=== PATIENT | male | born 1985 | race Two or more races ===

== ENCOUNTER → 2024-08-14 | Outpatient (CLI) | payer MEDICAID, SELFPAY ==
--- NOTE | 2024-08-14 09:02 | XR_ITS ---
Examination: Bilateral hips, AP pelvis, 5 views Technique: AP, lateral views both hips, AP pelvis, 5 views Exam date and time: August 14, 2024 0913 hours INDICATIONS: Bilateral hip pain beginning 4 months ago. FINDINGS: Advanced right hip osteoarthritis Right hip femoral head laterally positioned relative to the acetabular margins Left hip intact minimal left hip osteoarthritis Bones of the pelvis intact IMPRESSION: Advanced right hip osteoarthritis
== END | disposition home or self-care (01) ==
PROVIDERS: PCP Family Medicine; Referring Provider Family Medicine; Visit Provider Family Medicine
DX: M16.11 Unilateral primary osteoarthritis, right hip (principal)
CPT/HCPCS: 73523